=== PATIENT | female | born 1930 | race African-American/Black ===

== ENCOUNTER 2016-08-04 19:37 | Emergency (ER) | payer OTHER ==
[~2016-08-04 19:37] MED LIST: ACET-1311 PO; AMLO2.5T PO; CIPR1TAB11 PO; FURO-85 PO; IMD/2 PO; LINICRE52 TOP; LORA-741 PO; LSN20 PO; NAPR1TAB9 PO; QUET1TAB32 PO; TRAM-10 PO; [UNRECOGNIZED DRUG - CODE] PO
[2016-08-04 19:45] VITALS: O2SAT 95
[2016-08-04 20:31] LABS: BASO % 0.2 %; BASO ABS # 0.01 K/uL (0-0.2); COMPLETE YES; EOS % 4.3 %; HEMATOCRIT 40.4 % (37-47); IG% 0.2 %; LYMPH % 17.9 %; LYMPH ABS # 0.87 K/uL (1.2-3.4); MEAN CELL VOLUME 88.2 fL (80-100); MEAN CORPUSCULAR HEMOGLOBIN 29.9 pg (25-34); MEAN CORPUSCULAR HGB CONC 33.9 g/dl (32-36); MEAN PLATELET VOLUME 11.7 fL (7.4-10.4); MONO % 11.5 %; NEUT % 65.9 %; PLATELET COUNT 196 K/uL (130-400); RED BLOOD COUNT 4.58 M/uL (4.2-5.4); WHITE BLOOD COUNT 4.85 K/uL (4.8-10.8)
--- NOTE | 2016-08-04 20:38 | DIAGNOSTIC IMAGING REPORT ---
CHEST ONE VIEW PORTABLE CLINICAL HISTORY: cough COMPARISON STUDY: March 2011 FINDINGS: The heart is borderline enlarged. There is mild central pulmonary vascular congestion. There are left mid lung zone opacities, likely atelectatic. Right basilar airspace opacities could be atelectatic or inflammatory.. There is minor blunting of the right lateral costophrenic angle. There is no pneumothorax.[ IMPRESSION: 1. Mild central pulmonary vascular congestion 2. Left midlung zone opacities, likely atelectatic. 3. Right basilar airspace opacities, atelectatic versus inflammatory 4. Radiographic follow-up is recommended Electronically signed by: Lior Rivera M.D. 08/04/2016 8:36 PM Dictated Date/Time: 08/04/2016 8:34 PM
[2016-08-04 20:47] LABS: ALT/SGPT 28 U/L (12-78); AST/SGOT 22 U/L (15-37); BLOOD UREA NITROGEN 16 mg/dl (7-18); BUN/CREATININE RATIO 15.6 (10-20); CALCIUM 8.7 mg/dl (8.5-10.1); CARBON DIOXIDE 28 mmol/L (21-32); CHLORIDE 101 mmol/L (98-107); GLUCOSE 92 mg/dl (70-99); POTASSIUM 3.5 mmol/L (3.5-5.1); SODIUM 141 mmol/L (136-145)
[2016-08-04 20:52] LABS: ALKALINE PHOSPHATASE 111 U/L (45-117)
[2016-08-04] MEDS ORDERED: OSELTAMIVIR PHOSPHATE 75 MG CAP PO STA (21:17)
[2016-08-04] MEDS ORDERED: LEVO-366 PO (21:25)
[2016-08-04] MEDS ORDERED: OSEL75CA12 PO (21:25)
[2016-08-04] MEDS ORDERED: LEVOFLOXACIN 250 MG TAB PO ONE (21:30)
[2016-08-04 21:45] VITALS: BP 131/86; PULSE 71; O2SAT 94
--- NOTE | 2016-08-04 23:18 | EMERGENCY ROOM VISIT NOTE ---
History Report prepared by Nuzhatibgayatri: Chintan Odom Under the Supervision of: Dr. Lei Dowd D.O. First contact with patient: 19:59 Chief Complaint: COUGH Stated Complaint: BAD COUGH/ FR [facility] Nursing Triage Summary: Pt presents via ALS litter from [facility] for eval of cough that began yesterday as a dry cough, now a "wet cough" and low grade fever that began today. Pt is a resident at [facility]. Poor historian d/t dementia. Daughters at bedside state pt has increased aggitation at times. History of Present Illness The patient is an 86 year old female who presents to the Emergency Room with complaints of persistent cough that started yesterday. The patient lives at [facility] and they called her daughters earlier today since she developed a cough. The daughters saw that patient 2 days ago and she seemed fine. Per [facility], a dry cough started yesterday and then overnight it became more productive and "croup-like." The patient also developed a fever of 99.8. She was given Tylenol, but by [facility] she had a temperature of 99.5. At [facility], they recommended she present to the ED for further evaluation since they could not get a good listen at her lungs and wanted more tests to be run. She also complained of chest pain at [facility], but then denied it to EMS. The patient's HPI is limited due to dementia. Source of History: patient, family Onset: yesterday Position: other (global) Quality: other ("croup-like") Associated Symptoms: + chest pain, + fevers Review of Systems The patient's ROS is limited due to dementia. Past Medical & Surgical Medical Problems: (1) Arthritis (2) Dementia (3) Hypertension (4) Meningioma (5) Stomach problems Family History Cancer FHx: hypertension Social History Smoking Status: Unknown if Ever Smoked Alcohol Use: occasionally Housing Status: lives alone Occupation Status: unemployed Current/Historical Medications Scheduled Amlodipine (Norvasc), 2.5 MG PO DAILY Furosemide (Lasix), 20 MG PO BID Levofloxacin (Levaquin), 500 MG PO DAILY Lisinopril (Lisinopril), 20 MG PO BID Naproxen (Aleve), 220 MG PO BID Nutritional Supplements (Ensure Nutrition Shake), 1 CAN PO TID Oseltamivir (Tamiflu), 75 MG PO BID Quetiapine Fumarate (Seroquel), 50 MG PO HS Scheduled PRN Acetaminophen (Tylenol), 650 MG PO Q6 PRN for Pain Loperamide Hcl (Imodium), 2 MG PO BID PRN for Diarrhea Tramadol (Ultram), 50 MG PO Q6 PRN for Pain Allergies Coded Allergies: No Known Allergies (Unverified , 08/04/16) Physical Exam Vital Signs Date Time Temp Pulse Resp B/P Pulse Ox O2 Delivery O2 Flow Rate FiO2 08/04/16 21:45 71 131/86 94 Room Air 08/04/16 19:48 76 08/04/16 19:45 98 18 133/91 95 Room Air 08/04/16 19:45 95 Room Air 08/04/16 19:45 95 Room Air Physical Exam GENERAL: sitting up in bed, disheveled, no acute distress, non-toxic EYE EXAM: normal conjunctiva, OROPHARYNX: no exudate, no erythema, lips, buccal mucosa, and tongue normal and mucous membranes are moist NECK: supple, no nuchal rigidity, no adenopathy, non-tender LUNGS: Faint wheeze in left lower lung. Normal chest wall mechanics HEART: no murmurs, S1 normal and S2 normal ABDOMEN: abdomen soft, non-tender, normo-active bowel sounds, no masses, no rebound or guarding. BACK: Back is symmetrical on inspection and there is no deformity, no midline tenderness, no CVA tenderness. SKIN: no rashes and no bruising UPPER EXTREMITIES: upper extremities are grossly normal. LOWER EXTREMITIES: No pitting edema bilaterally. NEURO EXAM: follows commands, not oriented to person, place, or time. Pleasantly demented at baseline per family. Medical Decision & Procedures ER Provider Diagnostic Interpretation: Xray results per the radiologist and my interpretation. CHEST ONE VIEW PORTABLE CLINICAL HISTORY: cough COMPARISON STUDY: March 2011 FINDINGS: The heart is borderline enlarged. There is mild central pulmonary vascular congestion. There are left mid lung zone opacities, likely atelectatic. Right basilar airspace opacities could be atelectatic or inflammatory.. There is minor blunting of the right lateral costophrenic angle. There is no pneumothorax.[ IMPRESSION: 1. Mild central pulmonary vascular congestion 2. Left midlung zone opacities, likely atelectatic. 3. Right basilar airspace opacities, atelectatic versus inflammatory 4. Radiographic follow-up is recommended Electronically signed by: Lior Rivera M.D. 08/04/2016 8:36 PM Dictated Date/Time: 08/04/2016 8:34 PM Laboratory Results 08/04/16 20:20 Red Blood Count 4.58, Mean Corpuscular Volume 88.2, Mean Corpuscular Hemoglobin 29.9, Mean Corpuscular Hemoglobin Concent 33.9, Mean Platelet Volume 11.7, Neutrophils (%) (Auto) 65.9, Lymphocytes (%) (Auto) 17.9, Monocytes (%) (Auto) 11.5, Eosinophils (%) (Auto) 4.3, Basophils (%) (Auto) 0.2, Neutrophils # (Auto ) 3.19, Lymphocytes # (Auto) 0.87, Monocytes # (Auto) 0.56, Eosinophils # (Auto ) 0.21, Basophils # (Auto) 0.01 08/04/16 20:20 Test 08/04/16 20:15 08/04/16 20:20 Influenza Type A Antigen POS for Influ A (NEG) Influenza Type B Antigen Neg for Influ B (NEG) White Blood Count 4.85 K/uL (4.8-10.8) Red Blood Count 4.58 M/uL (4.2-5.4) Hemoglobin 13.7 g/dL (12.0-16.0) Hematocrit 40.4 % (37-47) Mean Corpuscular Volume 88.2 fL (80-100) Mean Corpuscular Hemoglobin 29.9 pg (25-34) Mean Corpuscular Hemoglobin Concent 33.9 g/dl (32-36) Platelet Count 196 K/uL (130-400) Mean Platelet Volume 11.7 fL (7.4-10.4) Neutrophils (%) (Auto) 65.9 % Lymphocytes (%) (Auto) 17.9 % Monocytes (%) (Auto) 11.5 % Eosinophils (%) (Auto) 4.3 % Basophils (%) (Auto) 0.2 % Neutrophils # (Auto) 3.19 K/uL (1.4-6.5) Lymphocytes # (Auto) 0.87 K/uL (1.2-3.4) Monocytes # (Auto) 0.56 K/uL (0.11-0.59) Eosinophils # (Auto) 0.21 K/uL (0-0.5) Basophils # (Auto) 0.01 K/uL (0-0.2) RDW Standard Deviation 48.0 fL (36.4-46.3) RDW Coefficient of Variation 14.9 % (11.5-14.5) Immature Granulocyte % (Auto) 0.2 % Immature Granulocyte # (Auto) 0.01 K/uL (0.00-0.02) Nucleated RBC Absolute Count (auto) 0.04 K/uL (0-0) Nucleated Red Blood Cells % 0.8 % Anion Gap 12.0 mmol/L (3-11) Estimated GFR () 59.1 Estimated GFR (Non- 51.0 BUN/Creatinine Ratio 15.6 (10-20) Calcium Level 8.7 mg/dl (8.5-10.1) Total Bilirubin 0.3 mg/dl (0.2-1) Direct Bilirubin < 0.1 mg/dl (0-0.2) Aspartate Amino Transf (AST/SGOT) 22 U/L (15-37) Alanine Aminotransferase (ALT/SGPT) 28 U/L (12-78) Alkaline Phosphatase 111 U/L (45-117) Troponin I < 0.015 ng/ml (0-0.045) Total Protein 7.5 gm/dl (6.4-8.2) Albumin 3.7 gm/dl (3.4-5.0) Lipase 234 U/L (73-393) Laboratory results per my review. Medications Administered Medications (Trade) Dose Ordered Sig/Luis Miguel Route Start Time Stop Time Status Last Admin Dose Admin Oseltamivir Phosphate (Tamiflu Cap) 75 mg NOW STAT PO 08/04/16 21:17 08/04/16 21:19 DC 08/04/16 21:48 75 MG Levofloxacin (Levaquin Tab) 500 mg NOW ONCE PO 08/04/16 21:30 08/04/16 21:31 DC 08/04/16 21:47 500 MG ECG Indication: other Rate (beats per minute): 76 Rhythm: sinus rhythm Findings: Q waves (Inferior), other (poor baseline in lateral leads) ED Course ED COURSE: Vital signs were reviewed and showed normal The patients medical record was reviewed The above diagnostic studies were performed and reviewed. ED treatments and interventions as stated above. 1999: The patient was evaluated in room C11. A complete history and physical examination was performed. 2116: Ordered Tamiflu Cap 75 mg PO. 2129: Ordered Levofloxacin 500 mg PO. 2216: Upon reevaluation, the patient is resting.I discussed my findings with the patient and her and her family understand and agree with the treatment plan. Based on the patients age, coexisting illnesses, exam and lab findings the decision to treat as an outpatient was made. The patient remained stable while under my care. The patient appeared well at the time of discharge. Medical Decision Differential diagnoses includes but is not limited to pneumonia, bronchitis, COPD/Asthma exacerbation, pneumothorax, pulmonary embolism, congestive heart failure, acute coronary syndrome Patient is an 86-year-old female referred in by [facility]. She lives at the long term and has been having a new cough. She is pleasantly demented and intermittently answers yes and no without any thought. Family notes that she is at her neurologic baseline. She did report to the other doctor at [facility] that she had chest pain. Patient is unable to give a history. Coughing has been present for the past 24 hours. Influenza A is positive. Chest x-ray shows a small focal consolidation in the left lower lobe. Vitals are stable. Remainder labs were unremarkable. EKG and troponin were negative. I notified family that for completeness should be 2 troponins but they do not believe that she was having any chest pain which did not pursue this any further with her dementia. She is given a dose of Tamiflu and Levaquin. The Tamiflu was for influenza A positive and the Levaquin is with consolidation in her chest. She is not hypoxic. She was discharged to home to [facility] to follow-up with PCP within 2 days. Discussed with Pt concerning signs and symptoms to watch out for. Pt was instructed to follow up with their PCP and discussed with the patient their option to return to the ED at anytime for persistent or worsening symptoms. The appropriate anticipatory guidance and out-patient management, including indications for return to the emergency department, were explained at length to the patient and understood. Impression Primary Impression: Influenza Additional Impressions: Pneumonia Cough Scribe Attestation The scribe's documentation has been prepared under my direction and personally reviewed by me in its entirety. I confirm that the note above accurately reflects all work, treatment, procedures, and medical decision making performed by me. Departure Information Dispostion Home / Self-Care Prescriptions Levofloxacin (Levaquin) 500 Mg Tab 500 MG PO DAILY for 9 Days, TAB Prov: Lei Dowd, DO 08/04/16 Oseltamivir (Tamiflu) 75 Mg Cap 75 MG PO BID, #10 CAP Prov: Lei Dowd, DO 08/04/16 Referrals [facility] (PCP) Forms HOME CARE DOCUMENTATION FORM, IMPORTANT VISIT INFORMATION Patient Instructions My [facility] Additional Instructions Please follow up with your primary care doctor with in the next 24 hours. Any worsening of your symptoms, please return to the ED immediately. This includes any fevers greater than 100.4, shortness of breath, chest pain, difficulty breathing, or any other concerning signs or symptoms from your standpoint. You were influenza a positive. This is why your prescribed Tamiflu. On her chest x-ray at that show a right basilar consolidation suggesting more of an infiltrative/pneumonia. This is why your were also prescribed an antibiotic of Levaquin. Problem Qualifiers Additional Impressions: Pneumonia Pneumonia type: due to unspecified organism Laterality: unspecified laterality Lung location: unspecified part of lung Qualified Codes: J18.9 - Pneumonia, unspecified organism
--- NOTE | 2016-08-07 12:50 | Pharmacy Progress Note ---
ED Pharmacist Progress Note Date of Service: Aug 07, 2016. nursing student gave me a copy of Levaquin and Tamiflu Rx's dated 08/04 that were still in the central command office. I contacted [facility] to determine if patient had gotten Rx's for Levofloxacin and Tamiflu on discharge. RN confirmed that both Rx had been obtained through the pharmacy [facility] and the patient is receiving these meds. The copies of both of the Rx's dated 08/04 were destroyed.
== END 2016-08-04 22:07 | disposition home or self-care (01) ==
LOC: EDBD 19:37 → C.EDC 19:40
DX: J11.1 Influenza due to unidentified influenza virus with other respiratory manifestations (principal); J18.9 Pneumonia, unspecified organism; M19.90 Unspecified osteoarthritis, unspecified site; F03.90 Unspecified dementia, unspecified severity, without behavioral disturbance, psychotic disturbance, mood disturbance, and anxiety; I10 Essential (primary) hypertension

== ENCOUNTER → 2016-08-15 | Outpatient (CLI) | payer OTHER ==
[~2016-08-15] MED LIST changes: -CIPR1TAB11 PO; -LINICRE52 TOP; -LORA-741 PO; +OSEL75CA12 PO
[2016-08-15 09:19] LABS: URINE APPEARANCE CLEAR (CLEAR); URINE BILIRUBIN NEG (NEG); URINE COLOR YELLOW; URINE EPITHELIAL CELL AUTO >30 /lpf (0-5); URINE NITRITE NEG (NEG); URINE PH 6.5 (4.5-7.5); UROBILINOGEN NEG (NEG)
[2016-08-15 09:23] LABS: MANUAL MICROSCOPIC REQUIRED? NO; REVIEW REQ? NO
--- NOTE | 2016-08-16 12:34 | CODING QUERY NO DIAGNOSIS ---
TREATMENT RENDERED WITHOUT A DIAGNOSIS Dr. Saavedra, To promote full compliance with coding requirements relating to patient care, physician participation is requested in all cases of senior ux developer uncertainty. Please assist us with providing a diagnosis/symptom for the test(s) below: A diagnosis/symptom was not documented on your Order. A valid diagnosis/symptom is required to bill all insurances. Please remember that we are unable to code a diagnosis of rule out, probable, possible, questionable, or suspected. Tests that require a diagnosis: * URINE CULTURE DIAGNOSIS: * URINALYSIS W/ MICROSCOPY DIAGNOSIS: DATE OF SERVICE: 08/15/16 Provider Signature: Date: Thank you Gregory Rose [facility] Information Management Once completed, please kindly fax back to [phone] For questions please call [phone]
== END | disposition home or self-care (01) ==
LOC: C.LABOUTLO 08:55
PROVIDERS: ATTEND Internal Medicine
DX: R31.9 Hematuria, unspecified (principal); N39.0 Urinary tract infection, site not specified

== ENCOUNTER 2019-11-14 10:25 | Inpatient (IN) ==
--- NOTE | 2019-11-14 10:39 | Emergency Department Note ---
Impression & Plan Cerebrovascular accident, Hypertension, Hypokalemia ED Provider Note NAME: JOSE ALFREDO PENA AGE: 89 SEX: F : 1930 ARRIVES VIA: Ambulance INFORMANT: Patient ED PROVIDER(S): Lei Dowd DO CHIEF COMPLAINT: weakness HPI: Patient is an 89-year-old female who is nonverbal with dementia and verbal take that presents the ER for weakness. She is a resident at [facility]. They note that today she has had a lazy eye on the left side and a question if she has been favoring her left side. They do note that she has been able to walk. History is limited as patient has no complaints as she is nonverbal. ROS: History is limited as patient is nonverbal. PAST MEDICAL HISTORY:See Below PAST SURGICAL HISTORY:See Below FAMILY HISTORY:See Below SOCIAL HISTORY:See Below HOME MEDICATIONS:See Below ALLERGIES:See Below VITALS:See Below PHYSICAL EXAMINATION: GENERAL: Sitting up in bed, alert, well appearing, well nourished, no distress, non-toxic EYE EXAM: normal conjunctiva. PERRL and EOM's grossly intact. OROPHARYNX: no exudate, no erythema, lips, buccal mucosa, and tongue normal and mucous membranes are moist NECK: supple, no nuchal rigidity, no adenopathy, non-tender LUNGS: Clear to auscultation. Normal chest wall mechanics HEART: no murmurs, S1 normal and S2 normal ABDOMEN: abdomen soft, non-tender, normo-active bowel sounds, no masses, no rebound or guarding. BACK: Back is symmetrical on inspection and there is no deformity, no midline tenderness, no CVA tenderness. SKIN: no rashes and no bruising UPPER EXTREMITIES: upper extremities are grossly normal. LOWER EXTREMITIES: No pitting edema. NEURO EXAM: Nonverbal with a intermittent home, cranial nerves II-XII intact, no weakness of arms, no weakness of legs. Unable to perform drift, [id number] and gross sensation MEDICAL DECISION MAKING: Patient is an 89-year-old female who presents to the ER for disconjugate gaze and weakness which started yesterday morning. She is nonverbal with dementia which presented extremely difficult neurologic exam. She was brought in by EMS. There is no obvious focal deficit with exception of her slightly abnormal gaze which is even difficult to interpret. IV was established blood work was obtained showed no significant leukocytosis or anemia. INR unremarkable. BMP with mild hypokalemia. LFTs bilirubin and troponin was negative. UA was negative. CT of the head as well as CT angios of the head and neck show right DUPLICATION SPECIALIST occlusion. Discussed with tele-stroke neurologist and symptoms started yesterday in the morning Dr. Moran notes that this patient is not a candidate for any current intervention. Recommended an aspirin and admission. Discussed with halfway nurse who notes that the patient is a full code. Discussed with her hospitalist team for admission. Discussed with the patient's daughter who notes that the patient is a DNR/DNI. She is in agreement with the admission and complete work-up. Triage Nursing notes reviewed. Prior medical records reviewed Vital Signs: reviewed and remarkable for no significant abnormalities Differential diagnosis: Differential Diagnosis includes but is not limited to ischemic Stroke, hemorrhagic stroke, bells palsy, mass, neoplasm, migraine headache, seizure, subarachnoid hemorrhage, TIA, and transient global amnesia. ER treatment provided: See below Diagnostics interpreted by me: ECG: Sinus rhythm rate of 65 Inferior Q waves Normal axis QTC of 428 No PVCs Unchanged from previous EKG. Cardiac Monitoring: An order was placed for continuous cardiac monitoring. The monitor shows a rate of 63 with sinus rhythm. Laboratory studies: As stated above and show below. Imaging studies: CT of the head shows no acute bleeds or masses. 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 Consultation(s): Discussed with halfway in regards to symptom onset. Discussed with daughter who notes she is a DNR/DNI. Discussed with Dr. Moran from [place] [facility]stroke [facility] who recommends aspirin and admission. [facility] COURSE: Procedures: none Critical Care: None Past Med/Surg History Social History Preferred Language: Armenian Communication Ability: Unable Beliefs That Will Affect Care: None Current Living Situation: [facility] Feels Safe at Home: Yes Smoking Status: Unknown if ever smoked Hx Alcohol Use: No Hx Substance Use: No Allergies Allergies Allergy/AdvReac Type Severity Reaction Status Date / Time No Known Allergies Allergy Unverified 11/14/19 11:36 Home Meds Home Medications Medication Instructions Recorded Confirmed Ensure 1 ea PO TID PRN 08/19/19 11/14/19 acetaminophen 650 mg PO Q6H PRN 08/19/19 11/14/19 quetiapine 50 mg PO HS 08/19/19 11/14/19 tramadol 50 mg PO Q6H PRN 08/19/19 11/14/19 insulin glargine [Lantus Solostar 7 units SQ BID 11/14/19 11/14/19 U-100 Insulin] Previous Rx's Medication Instructions Recorded amlodipine 5 mg PO QAM #0 tab 08/22/19 furosemide [Lasix] 20 mg PO DAILY #0 tab 08/22/19 lisinopril 20 mg PO DAILY #0 tab 08/22/19 Results & Data (ED) Vital Signs Vital Signs - 24 hr 11/14/19 10:34 11/14/19 10:52 Temperature 36.5 C Temperature Source Oral Pulse Rate 65 67 Respiratory Rate 24 22 Respiratory Effort / Characteristics Spontaneous Blood Pressure 158/59 H Blood Pressure Mean 92 Blood Pressure Position Lying Pulse Oximetry 98 98 Oxygen Delivery Method Room Air Room Air Sepsis Recent Fever Within 48 Hours No Sepsis New/Unexplained Change in Mental Status No Sepsis Action Taken by Nursing No Action Required Laboratory Data Result diagrams: 11/14/19 11:10 11/14/19 11:10 Lab Results 11/14/19 11/14/19 11/14/19 Range/Units 11:10 11:10 11:10 WBC 6.40 (4.8-10.8) K/uL RBC 4.56 (4.2-5.4) M/uL Hgb 13.0 (12.0-16.0) g/dL Hct 40.3 (37-47) % MCV 88.4 (80-100) fL MCH 28.5 (25-34) pg MCHC 32.3 (32-36) g/dL RDW Std Deviation 48.0 H (36.4-46.3) fL RDW Coeff of Saira 15.1 H (11.5-14.5) % Plt Count 250 (130-400) K/uL MPV 11.5 H (7.4-10.4) fL Immature Gran % (Auto) 0.2 % Neut % (Auto) 54.9 % Lymph % (Auto) 31.4 % Slope % (Auto) 9.2 % Eos % (Auto) 4.1 % Baso % (Auto) 0.2 % Immature Gran # (Auto) 0.01 (0.00-0.02) K/uL Neut # (Auto) 3.52 (1.4-6.5) K/uL Lymph # (Auto) 2.01 (1.2-3.4) K/uL Slope # (Auto) 0.59 (0.11-0.59) K/uL Eos # (Auto) 0.26 (0-0.5) K/uL Baso # (Auto) 0.01 (0-0.2) K/uL PT 10.9 (9.0-12.0) Seconds INR 1.0 (0.9-1.1) APTT 26.9 (21.0-31.0) Seconds PTT Ratio 1.0 Sodium 142 (136-145) mmol/L Potassium 3.3 L (3.5-5.1) mmol/L Chloride 108 H (98-107) mmol/L Carbon Dioxide 29 (21-32) mmol/L Anion Gap 5.0 (3-11) BUN 12 (7-18) mg/dl Creatinine 0.97 (0.6-1.2) mg/dl Est Cr Clr Drug Dosing 38.6 ml/min Est GFR ( Amer) 60.0 Est GFR (Non-Af Amer) 51.8 BUN/Creatinine Ratio 12.0 (10-20) Glucose 95 (70-99) mg/dl POC Glucose (70-99) mg/dl Calcium 8.6 (8.5-10.1) mg/dl Magnesium 2.2 (1.8-2.4) mg/dl Total Bilirubin 0.4 (0.2-1) mg/dl AST 15 (15-37) U/L ALT 20 (12-78) U/L Alkaline Phosphatase 75 (45-117) U/L Troponin I < 0.015 (0-0.045) ng/ml Total Protein 7.8 (6.4-8.2) gm/dl Albumin 3.2 L (3.4-5.0) gm/dl Globulin 4.6 H (2.5-4.0) gm/dl Albumin/Globulin Ratio 0.7 L (0.9-2) Urine Color Urine Appearance (Clear) Urine pH (4.5-7.5) Ur Specific Alpha (1.000-1.030) Urine Protein (Negative) Urine Glucose (UA) (Negative) Urine Ketones (Negative) Urine Blood (Negative) Urine Nitrite (Negative) Urine Bilirubin (Negative) Urine Urobilinogen (Negative) Ur Leukocyte Esterase (Negative) 11/14/19 11/14/19 Range/Units 11:10 11:16 WBC (4.8-10.8) K/uL RBC (4.2-5.4) M/uL Hgb (12.0-16.0) g/dL Hct (37-47) % MCV (80-100) fL MCH (25-34) pg MCHC (32-36) g/dL RDW Std Deviation (36.4-46.3) fL RDW Coeff of Saira (11.5-14.5) % Plt Count (130-400) K/uL MPV (7.4-10.4) fL Immature Gran % (Auto) % Neut % (Auto) % Lymph % (Auto) % Slope % (Auto) % Eos % (Auto) % Baso % (Auto) % Immature Gran # (Auto) (0.00-0.02) K/uL Neut # (Auto) (1.4-6.5) K/uL Lymph # (Auto) (1.2-3.4) K/uL Slope # (Auto) (0.11-0.59) K/uL Eos # (Auto) (0-0.5) K/uL Baso # (Auto) (0-0.2) K/uL PT (9.0-12.0) Seconds INR (0.9-1.1) APTT (21.0-31.0) Seconds PTT Ratio Sodium (136-145) mmol/L Potassium (3.5-5.1) mmol/L Chloride (98-107) mmol/L Carbon Dioxide (21-32) mmol/L Anion Gap (3-11) BUN (7-18) mg/dl Creatinine (0.6-1.2) mg/dl Est Cr Clr Drug Dosing ml/min Est GFR ( Amer) Est GFR (Non-Af Amer) BUN/Creatinine Ratio (10-20) Glucose (70-99) mg/dl POC Glucose 103 H (70-99) mg/dl Calcium (8.5-10.1) mg/dl Magnesium (1.8-2.4) mg/dl Total Bilirubin (0.2-1) mg/dl AST (15-37) U/L ALT (12-78) U/L Alkaline Phosphatase (45-117) U/L Troponin I (0-0.045) ng/ml Total Protein (6.4-8.2) gm/dl Albumin (3.4-5.0) gm/dl Globulin (2.5-4.0) gm/dl Albumin/Globulin Ratio (0.9-2) Urine Color Yellow Urine Appearance Clear (Clear) Urine pH 5.5 (4.5-7.5) Ur Specific Alpha 1.016 (1.000-1.030) Urine Protein Negative (Negative) Urine Glucose (UA) Negative (Negative) Urine Ketones Negative (Negative) Urine Blood Negative (Negative) Urine Nitrite Negative (Negative) Urine Bilirubin Negative (Negative) Urine Urobilinogen Negative (Negative) Ur Leukocyte Esterase Negative (Negative) Administered Medications Ioversol (Optiray 320 125ml) 120 ml IV ONCE PRN PRN Reason: Interaction Checking Stop: 11/18/19 11:49 Last Admin: 11/14/19 11:50 Dose: 120 ml Documented by: [id number] Discontinued Medications Aspirin (Aspirin) 81 mg PO NOW STA Stop: 11/14/19 13:03 Last Admin: 11/14/19 13:14 Dose: 81 mg Documented by: [id number] Discharge Plan Visit Data Chief Complaint: Neuro Symptoms/Deficit Stated Complaint: Neuro Symptoms ED Provider: Lei Dowd Discharge Problem: Cerebrovascular accident, Hypertension, Hypokalemia Forms Stand Alone Forms: My [facility] [employer] Prescriptions Prescriptions: No Action Lantus Solostar U-100 Insulin 100 unit/mL (3 mL) insulin pen 7 units SQ BID RF: 0 quetiapine 50 mg Tablet 50 mg PO HS RF: 0 acetaminophen 325 mg Tablet 650 mg PO Q6H PRN (Reason: Pain) RF: 0 tramadol 50 mg Tablet 50 mg PO Q6H PRN (Reason: Pain) RF: 0 Ensure Liquid 1 ea PO TID PRN (Reason: Other) RF: 0 lisinopril 20 mg Tablet 20 mg PO DAILY Qty: 0 RF: 0 amlodipine 2.5 mg Tablet 5 mg PO QAM Qty: 0 RF: 0 furosemide [Lasix] 20 mg Tablet 20 mg PO DAILY Qty: 0 RF: 0 Discharge Problem: Cerebrovascular accident Qualifiers: CVA mechanism: unspecified Qualified Code(s): I63.9 - Cerebral infarction, unspecified Hypertension Qualifiers: Hypertension type: unspecified Qualified Code(s): I10 - Essential (primary) hypertension
[2019-11-14 11:19] LABS: Appearance Urine Clear (Clear); Bilirubin Urine Negative (Negative); Blood Urine Negative (Negative); Color Urine Yellow; Glucose Urine UA Negative (Negative); Ketones Urine Negative (Negative); Leukocyte Esterase Urine Negative (Negative); Nitrite Urine Negative (Negative); Protein Urine Negative (Negative); Specific Gravity Urine 1.016 (1.000-1.030); Urobilinogen Urine Negative (Negative); pH Urine 5.5 (4.5-7.5)
[2019-11-14 11:20] LABS: Basophils # (auto) 0.01 K/uL (0-0.2); Basophils % (auto) 0.2 %; Eosinophils # (auto) 0.26 K/uL (0-0.5); Eosinophils % (auto) 4.1 %; Hematocrit (blood only) 40.3 % (37-47); Immature Granulocytes # (auto) 0.01 K/uL (0.00-0.02); Immature Granulocytes % (auto) 0.2 %; Lymphocytes # (auto) 2.01 K/uL (1.2-3.4); Lymphocytes % (auto) 31.4 %; Mean Corpuscular Hemoglobin 28.5 pg (25-34); Mean Corpuscular Hgb Conc 32.3 g/dL (32-36); Mean Corpuscular Volume 88.4 fL (80-100); Mean Platelet Volume 11.5 fL (7.4-10.4); Monocytes # (auto) 0.59 K/uL (0.11-0.59); Monocytes % (auto) 9.2 %; Neutrophils # (auto) 3.52 K/uL (1.4-6.5); Neutrophils % (auto) 54.9 %; Platelet Count 250 K/uL (130-400); RDW Coefficient of Variation 15.1 % (11.5-14.5); Red Blood Count 4.56 M/uL (4.2-5.4)
[2019-11-14 11:32] LABS: Partial Thromboplastin Time 26.9 Seconds (21.0-31.0); Prothrombin Time 10.9 Seconds (9.0-12.0)
[2019-11-14 11:37] LABS: Alanine Aminotransferase 20 U/L (12-78); Albumin Level 3.2 gm/dl (3.4-5.0); Aspartate Aminotransferase 15 U/L (15-37); Blood Urea Nitrogen 12 mg/dl (7-18); Calcium 8.6 mg/dl (8.5-10.1); Carbon Dioxide 29 mmol/L (21-32); Chloride 108 mmol/L (98-107); Creatinine Clr Calc Pharmacy 38.6 ml/min; Est GFR (Non-African American) 51.8; Glucose 95 mg/dl (70-99); Magnesium 2.2 mg/dl (1.8-2.4); Potassium 3.3 mmol/L (3.5-5.1); Sodium 142 mmol/L (136-145)
[2019-11-14 11:42] LABS: Albumin Globulin Ratio 0.7 (0.9-2); Alkaline Phosphatase 75 U/L (45-117); Bilirubin,Total 0.4 mg/dl (0.2-1); Globulin 4.6 gm/dl (2.5-4.0); Total Protein 7.8 gm/dl (6.4-8.2); Troponin I < 0.015 ng/ml (0-0.045)
--- NOTE | 2019-11-14 11:48 | XRay Report ---
XR chest 1V portable HISTORY: weakness COMPARISON: Chest 08/19/2019. FINDINGS: The heart remains mildly enlarged. No evidence for pulmonary edema. No pleural effusions. N o pneumothorax. No new focal lung consolidations to suggest pneumonia. A few bibasilar linear densiti es favor subsegmental atelectasis or scarring. IMPRESSION: Stable cardiomegaly. ACT 112: Negative or not required by law. Electronically signed by: Daryn Kurtz M.D. 11/14/2019 11:47 AM
[2019-11-14] MEDS ORDERED: OPTIRAY 320 125ml IV PRN (11:50)
--- NOTE | 2019-11-14 12:40 | CT Scan Report ---
HEAD CT NONCONTRAST CT DOSE: HISTORY: Stroke symptoms. TECHNIQUE: Multiaxial CT images of the head were performed without the use of intravenous contrast. A utomated exposure control was utilized for this study. A dose lowering technique was utilized adheri ng to the principles of ALARA. Comparison: Head CT 08/19/2019. Findings: The paranasal sinuses and mastoid air cells are clear. The calvarium and skull base are int act. No change in the 1.7 cm calcified extra-axial lesion within the left frontal lobe. This favors a meningioma. No hematoma, midline shift, or acute infarct. Progressive moderate ventriculomegaly. Mil d microvascular ischemic changes are again noted. Impression: 1. No acute infarct. 2. Stable 17 mm left frontal lobe meningioma. 3. Progressive moderate ventriculomegaly. This could be due to atrophic changes given the patient's a ge. A normal pressure hydrocephalus could also have a similar appearance in the appropriate clinical setting. ACT 112: Negative or not required by law. Electronically signed by: Daryn Kurtz M.D. 11/14/2019 12:38 PM
--- NOTE | 2019-11-14 12:48 | CT Scan Report ---
HEAD & NECK CTA HISTORY: Stroke symptoms. TECHNIQUE: Multiaxial CT images of the head were performed following the intravenous administration o f contrast to evaluate the major cerebral vessels. Multiaxial CT images of the neck were also perform ed following the intravenous administration of contrast to evaluate the major cervical vessels. Maxim um intensity projection images were also obtained. A dose lowering technique was utilized adhering to the principles of ALARA. COMPARISON: Head CT 08/19/2019. FINDINGS: Moderate ventriculomegaly is again noted as seen on the same day head CT. Mild focal narrowing within the mid basilar artery. There is abrupt cut off within the proximal right TIER IN. Multifocal high-grade stenosis within the left TIER IN. Moderate narrowing within the supraclinoid portion of the right ICA. T he left intracranial ICA appears patent. Moderate multifocal narrowing within the right OBI. The left OBI appears patent. Mild focal narrowing within the proximal left MCA. The right MCA is patent. Hypo plastic left vertebral artery comparison to the right. The aortic arch and proximal great vessels are widely patent. Mild focal stenosis at the origin of the right ICA of approximately 30% due to the atherosclerotic plaque. The bilateral common carotid, l eft internal carotid, vertebral arteries appear patent. IMPRESSION: 1. Focal abrupt cut off within the proximal right TIER IN. This is age indeterminate but concerning for a n acute right TIER IN territory infarct. 2. Additional multifocal areas of stenosis within the [place] as described above. 3. Mild stenosis at the origin of the right internal carotid artery. The left internal carotid artery and common carotid arteries are patent. ACT 112: Negative or not required by law. Electronically signed by: Daryn Kurtz M.D. 11/14/2019 12:47 PM
--- NOTE | 2019-11-14 12:48 | CT Scan Report ---
HEAD & NECK CTA HISTORY: Stroke symptoms. TECHNIQUE: Multiaxial CT images of the head were performed following the intravenous administration o f contrast to evaluate the major cerebral vessels. Multiaxial CT images of the neck were also perform ed following the intravenous administration of contrast to evaluate the major cervical vessels. Maxim um intensity projection images were also obtained. A dose lowering technique was utilized adhering to the principles of ALARA. COMPARISON: Head CT 08/19/2019. FINDINGS: Moderate ventriculomegaly is again noted as seen on the same day head CT. Mild focal narrowing within the mid basilar artery. There is abrupt cut off within the proximal right INFORMATION SECURITY MANAGER. Multifocal high-grade stenosis within the left INFORMATION SECURITY MANAGER. Moderate narrowing within the supraclinoid portion of the right ICA. T he left intracranial ICA appears patent. Moderate multifocal narrowing within the right OBI. The left OBI appears patent. Mild focal narrowing within the proximal left MCA. The right MCA is patent. Hypo plastic left vertebral artery comparison to the right. The aortic arch and proximal great vessels are widely patent. Mild focal stenosis at the origin of the right ICA of approximately 30% due to the atherosclerotic plaque. The bilateral common carotid, l eft internal carotid, vertebral arteries appear patent. IMPRESSION: 1. Focal abrupt cut off within the proximal right INFORMATION SECURITY MANAGER. This is age indeterminate but concerning for a n acute right INFORMATION SECURITY MANAGER territory infarct. 2. Additional multifocal areas of stenosis within the [place] as described above. 3. Mild stenosis at the origin of the right internal carotid artery. The left internal carotid artery and common carotid arteries are patent. ACT 112: Negative or not required by law. Electronically signed by: Daryn Kurtz M.D. 11/14/2019 12:47 PM
[2019-11-14] MEDS ORDERED: ASPIRIN CHEW 324 MG PO STA (13:02)
[2019-11-14] MEDS ORDERED: ACETAMINOPHEN 325 MG TAB PO PRN (14:30)
--- NOTE | 2019-11-14 14:59 | History & Physical Report ---
Date of Service November 14, 2019 Assessment & Plan (1) Cerebrovascular accident: CTA of head/neck concerning for acute right DENTAL HYGIENE ADMINISTRATIVE ASSISTANT territory infarct. Discussed with pt's daughter who agrees with admission for additional monitoring and evaluation but overall does not want aggressive measures. - Neuro checks - Start aspirin 81 mg daily - Consult neuro for additional recommendations - Consult PT/OT/Speech therapy - Pt seemed to do better with applesauce than water so will keep NPO except pills with applesauce until seen by speech therapy - Monitor on telemetry (2) Hypokalemia: - Start maintenance IVF - will replete potassium with IVF and recheck in AM - Check mag level (3) Type 2 diabetes mellitus: - Hold baseline Lantus while NPO - Insulin sliding scale for now - Accuchecks Q6 hrs (4) Dementia: Per daughter, pt appears to be at baseline mental status - Continue Seroquel (5) Hypertension: - Continue outpatient amlopdine and lisinopril with holds Extensive conversation with pt's daughter, Rosalba. She requests to be updated with any changes. Her cell # is [phone] and home # is [phone]. All of her questions were answered. She is in agreement with plan of care. She does state that the family is in agreement that pt is DNR/DNI. Pt review with attending physician, Dr. Vazquez. Plan of care discussed and as outlined above. Josiah Kay PA-C History of Present Illness Chief Complaint: Change in gait - concern for CVA Primary Care Provider: [facility] This is an 89 y/o female who is non-verbal and has a history of dementia, meningioma, insulin-requiring diabetes, and hypertension who presents from [facility] with neurologic changes if an unclear duration but potentially since yesterday. Pt unable to provide any history so history gathered from daughter and ED physician. At some point yesterday, staff at [facility] noticed pt favoring her left side and an abnormal gaze. This morning they noticed pt having increased difficulty with ambulation and a change in her gait so sent to ED for further work-up. Per daughter, pt had done well with PT/OT/speech therapy since she was last admitted her in August. Was able to walk with one person assist (struggles with using a walker) and had started feeding herself finger foods. Pt has been non-verbal for past two years but does groan or hum frequently. Seems to recognize family but does not maintain eye contact at baseline. Allergies Allergy/AdvReac Type Severity Reaction Status Date / Time No Known Allergies Allergy Unverified 11/14/19 11:36 Home Medications Home Medications Medication Instructions Recorded Confirmed Type Ensure 1 ea PO TID PRN 08/19/19 11/14/19 History acetaminophen 650 mg PO Q6H PRN 08/19/19 11/14/19 History quetiapine 50 mg PO HS 08/19/19 11/14/19 History tramadol 50 mg PO Q6H PRN 08/19/19 11/14/19 History amlodipine 5 mg PO QAM #0 tab 08/22/19 11/14/19 Rx furosemide 20 mg PO BID 11/14/19 11/14/19 History insulin glargine [Lantus Solostar 7 units SQ BID 11/14/19 11/14/19 History U-100 Insulin] lisinopril 20 mg PO BID 11/14/19 11/14/19 History Past Med/Surg History Medical History (Updated 11/14/19 @ 15:15 by Dawn Kay PA-C) Arthritis (Chronic) Dementia (Chronic) Hypertension (Chronic) Meningioma (Resolved) Type 2 diabetes mellitus Surgical History History of thyroid surgery Social History Preferred Language: Khmer Communication Ability: Impaired 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 Hand Required: No Beliefs That Will Affect Care: None Current Living Situation: Retirement Other Information That Helps Us Care for You: No Feels Safe at Home: Yes Smoking Status: Unknown if ever smoked Hx Alcohol Use: No Hx Substance Use: No Review of Systems Review of Systems: Unobtainable due to cognitive status Physical Exam Constitutional: WD/WN, vitals as above no acute distress Eyes: + anicteric sclerae and PERRL; no conjunctival abnormality Unable to cooperate with EOMs - did intermittently track my movement around the room ENMT: Moist mucus membranes Neck: normal visual inspection and trachea midline Respiratory: no respiratory distress, no retractions and does not use accessory muscles Auscultation: lungs clear to auscultation bilaterally (but limited inspiratory effort) Cardiovascular: Rate/Rhythm: regular rate and regular rhythm Vessels: dorsalis pedis pulses present Extremities: + edema (1+ bilateral LE edema) Gastrointestinal (Abdomen): Inspection/Auscultation: normal bowel sounds; abdomen not distended Percussion/Palpation: abdomen soft; abdomen nontender Musculoskeletal: Head/Neck/Chest: normocephalic, head atraumatic and neck supple Extremities: no cyanosis and no clubbing Skin: no rashes, warm and dry no jaundice Neurologic: moves all extremities (but limited ability to cooperate with full exam) Speech / Cognition: + abnormal speech (non-verbal - groaning during exam) No facial droop noted Results & Data Results & Data ([facility]) Vital Signs (Past 12 Hours) Vital Signs Temp Pulse Resp BP Pulse Ox 11/14/19 14:31 60 12 95 11/14/19 14:30 61 13 127/76 96 11/14/19 14:01 65 12 149/98 H 97 11/14/19 14:00 61 13 11/14/19 13:31 64 13 97 11/14/19 13:30 67 15 152/134 H 11/14/19 13:01 66 12 93 11/14/19 13:00 65 12 142/79 H 95 11/14/19 12:31 69 14 92 11/14/19 12:30 70 14 130/74 11/14/19 12:02 79 37 H 11/14/19 11:31 66 16 96 11/14/19 11:30 66 13 146/81 H 97 11/14/19 11:01 63 13 98 11/14/19 11:00 70 20 142/95 H 11/14/19 10:52 67 22 98 11/14/19 10:43 65 14 158/59 H 100 11/14/19 10:34 36.5 C 65 24 158/59 H 98 11/14/19 10:32 90 32 H Laboratory Results Laboratory Results - last 24 hr 11/14/19 11/14/19 11/14/19 11:10 11:10 11:10 WBC 6.40 RBC 4.56 Hgb 13.0 Hct 40.3 MCV 88.4 MCH 28.5 MCHC 32.3 RDW Std Deviation 48.0 H RDW Coeff of Saira 15.1 H Plt Count 250 MPV 11.5 H Immature Gran % (Auto) 0.2 Neut % (Auto) 54.9 Lymph % (Auto) 31.4 [place] % (Auto) 9.2 Eos % (Auto) 4.1 Baso % (Auto) 0.2 Immature Gran # (Auto) 0.01 Neut # (Auto) 3.52 Lymph # (Auto) 2.01 [place] # (Auto) 0.59 Eos # (Auto) 0.26 Baso # (Auto) 0.01 PT 10.9 INR 1.0 APTT 26.9 PTT Ratio 1.0 Sodium 142 Potassium 3.3 L Chloride 108 H Carbon Dioxide 29 Anion Gap 5.0 BUN 12 Creatinine 0.97 Est Cr Clr Drug Dosing 38.6 Est GFR ( Amer) 60.0 Est GFR (Non-Af Amer) 51.8 BUN/Creatinine Ratio 12.0 Glucose 95 POC Glucose Calcium 8.6 Magnesium 2.2 Total Bilirubin 0.4 AST 15 ALT 20 Alkaline Phosphatase 75 Troponin I < 0.015 Total Protein 7.8 Albumin 3.2 L Globulin 4.6 H Albumin/Globulin Ratio 0.7 L Urine Color Urine Appearance Urine pH Ur Specific [place] Urine Protein Urine Glucose (UA) Urine Ketones Urine Blood Urine Nitrite Urine Bilirubin Urine Urobilinogen Ur Leukocyte Esterase 11/14/19 11/14/19 11:10 11:16 WBC RBC Hgb Hct MCV MCH MCHC RDW Std Deviation RDW Coeff of [place] Plt Count MPV Immature Gran % (Auto) Neut % (Auto) Lymph % (Auto) [place] % (Auto) Eos % (Auto) Baso % (Auto) Immature Gran # (Auto) Neut # (Auto) Lymph # (Auto) [place] # (Auto) Eos # (Auto) Baso # (Auto) PT INR APTT PTT Ratio Sodium Potassium Chloride Carbon Dioxide Anion Gap BUN Creatinine Est Cr Clr Drug Dosing Est GFR ( Amer) Est GFR (Non-Af Amer) BUN/Creatinine Ratio Glucose POC Glucose 103 H Calcium Magnesium Total Bilirubin AST ALT Alkaline Phosphatase Troponin I Total Protein Albumin Globulin Albumin/Globulin Ratio Urine Color Yellow Urine Appearance Clear Urine pH 5.5 Ur Specific [place] 1.016 Urine Protein Negative Urine Glucose (UA) Negative Urine Ketones Negative Urine Blood Negative Urine Nitrite Negative Urine Bilirubin Negative Urine Urobilinogen Negative Ur Leukocyte Esterase Negative Diagnostic Findings CT Head 11/14/19 - Impression: 1. No acute infarct. 2. Stable 17 mm left frontal lobe meningioma. 3. Progressive moderate ventriculomegaly. This could be due to atrophic changes given the patient's age. A normal pressure hydrocephalus could also have a similar appearance in the appropriate clinical setting. CTA Head and Neck 11/14/19 - IMPRESSION: 1. Focal abrupt cut off within the proximal right DENTAL HYGIENE ADMINISTRATIVE ASSISTANT. This is age indeterminate but concerning for an acute right DENTAL HYGIENE ADMINISTRATIVE ASSISTANT territory infarct. 2. Additional multifocal areas of stenosis within the [place] as described above. 3. Mild stenosis at the origin of the right internal carotid artery. The left internal carotid artery and common carotid arteries are patent. Chest X-ray 11/14/19 - IMPRESSION: Stable cardiomegaly. Medications Administered Ioversol (Optiray 320 125ml) 120 ml IV ONCE PRN PRN Reason: Interaction Checking Stop: 11/18/19 11:49 Last Admin: 11/14/19 11:50 Dose: 120 ml Documented by: [id number] Discontinued Medications Aspirin (Aspirin) 81 mg PO NOW STA Stop: 11/14/19 13:03 Last Admin: 11/14/19 13:14 Dose: 81 mg Documented by: [id number] Code Status & VTE Plan VTE Prophylaxis Plan VTE Prophylaxis will be ordered: Yes Supervising Physician Co-Signing Physician Notes Attending addendum: The patient was seen and examined in medical telemetry unit She has dementia with history of diabetes type 2 on insulin, meningioma, hypertension and has been almost bedbound. She was brought in possible strokelike symptoms She has been nonverbal and moans all the time without any acute distress On examination Lying in bed without any facial asymmetry or any acute distress Hemodynamically stable Chest-decreased breath sounds both sides without any crackles Heart-S1-S2, regular Abdomen-soft, bowel sounds present Extremities-has 1-2+ bilateral edema PRODUCT LINE MANAGER-alert and awake. Nonverbal. Not following commands. 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
[2019-11-14] MEDS ORDERED: DEXTROSE 50% 50 ML SYRINGE IV PRN (15:32)
[2019-11-14] MEDS ORDERED: CARBOHYDRATES FOR HYPOGLYCEMIA PO PRN (15:32)
[2019-11-14] MEDS ORDERED: GLUCAGON FOR INJ 1 MG VIAL SQ PRN (15:32)
[2019-11-14] MEDS ORDERED: GLUCOSE 40% GEL 15 GM TUBE PO PRN (15:32)
[2019-11-14] MEDS ORDERED: POTASSIUM CHLORIDE 40 MEQ in SODIUM CHLORIDE 0.9% 1000ML 1,000 ML IV SCH (15:32)
[2019-11-14] MEDS ORDERED: GLUCOSE 10 TABS/TUBE PO PRN (15:32)
[2019-11-14] MEDS ORDERED: Nursing to Pharmacy Communication ONE (16:11)
[2019-11-14] MEDS ORDERED: INSULIN ASPART 100 UNITS/ML 3 ML PEN SC SCH (16:30)
[2019-11-14] MEDS: INSULIN ASPART 100 UNITS/ML 3 ML PEN SC SCH (18:32)
--- NOTE | 2019-11-14 19:20 | Communication Note ---
Date of Service: November 14, 2019 CHIEF COMPLAINT: Testicular pain HISTORY OF PRESENT ILLNESS: This man has had pain in the testicle for XXXXX. He denies any injury or unusual lifting or straining. There has been no dysuria or increased urinary frequency. No blood in the urine and no difficulty initiating urination. He denies abdominal pain. The pain is steady and severe. REVIEW OF SYSTEMS: GASTROINTESTINAL: No abdominal pain, vomiting, loss of appetite, or diarrhea. MUSCULOSKELETAL: No joint pain or swelling, no limitation of motion, no skeletal injuries. PMH: The patient is healthy; there is no significant medical or surgical history. SOCIAL HISTORY: Patient living at home. PHYSICAL EXAM: Vital Signs: Reviewed Nurse's notes. ABDOMEN: Soft, nontender, no hepatosplenomegaly, or masses. SKIN: Normal. The testicle is enlarged as large as the normal testicle. It is very tender to palpation. There is no inguinal lymphadenopathy. EMERGENCY DEPARTMENT COURSE: Urinalysis shows XXXXX. DIAGNOSIS: Epididymitis I just received notification of this consultation on an 89-year-old patient who is a resident of [facility] has been nonverbal for 2 years, has difficulties with ambulation and quite a number of vascular risk factors who had a change in mental status perhaps a visual field cut and apparently some difficulty moving her left arm and leg according to the notes I have reviewed from emergency room and from the admitting service. While no CT evidence for acute infarction is seen there is clearly evidence on CT angiography of multifocal areas of stenoses in the basilar artery and the left posterior cerebral an abrupt cutoff of the right posterior cerebral artery which certainly would be a lesion capable of producing increased confusion and a left visual field cut. The patient apparently was not on aspirin when this is been started. The family apparently does not wish to have a lot of aggressive treatment and she is a DO NOT RESUSCITATE DO NOT INTUBATE I will come in to briefly assess her tomorrow but at this point I do not feel neurology has a lot to offer other than the aspirin which she apparently was not taking until the present time We might wish to repeat a CAT scan tomorrow just to be sure that there is no hemorrhagic transformation of what I assume is what appears to be a right occipital infarction as this distribution of stroke has been higher predilection for this type of hemorrhagic change Since she is a resident of [facility] and has presented with acute stroke we might want to think about doing COVID-19 as asymptomatic patients have a youthful age can present with a CVA is the only manifestation of a COVID-19 infection. This of course would be a decision that needs to be made by the admitting team Bladimir Higgins MD
[2019-11-14] MEDS ORDERED: HydrALAZINE HCL 20 MG/ML VIAL IV PRN (20:03)
--- NOTE | 2019-11-14 20:13 | Communication Note ---
Date of Service: November 14, 2019 My prior note somehow became attached to a urology consultation done I believe on a completely different patient and I could not do anything to change this. I refer the reader to be the second half of the note which outlines my opinion and recommendations at this time. Tomorrow when I do not make a brief visit to the bedside and review more of the studies a final note and recommendations will be made Bladimir Higgins MD
[2019-11-14] MEDS: HEPARIN SOD 5,000 UNIT/0.5 ML VIAL SQ SCH (20:48)
[2019-11-14] MEDS: lisinopriL 20 MG TAB PO SCH (20:50)
[2019-11-14] MEDS: QUETIAPINE FUMARATE 25 MG TABLET PO SCH (20:50)
[2019-11-14] MEDS ORDERED: INSULIN GLARGINE SOLOSTAR 100 UNITS/ML 3 ML PEN SQ SCH (21:00)
[2019-11-15] MEDS: INSULIN ASPART 100 UNITS/ML 3 ML PEN SC SCH ×5 (00:05→20:40)
[2019-11-15 06:24] LABS: Basophils # (auto) 0.01 K/uL (0-0.2); Basophils % (auto) 0.2 %; Eosinophils % (auto) 4.7 %; Hematocrit (blood only) 44.7 % (37-47); Hemoglobin 14.9 g/dL (12.0-16.0); Immature Granulocytes # (auto) 0.01 K/uL (0.00-0.02); Immature Granulocytes % (auto) 0.2 %; Lymphocytes # (auto) 2.48 K/uL (1.2-3.4); Lymphocytes % (auto) 38.6 %; Mean Corpuscular Hemoglobin 29.7 pg (25-34); Mean Corpuscular Hgb Conc 33.3 g/dL (32-36); Mean Platelet Volume 11.4 fL (7.4-10.4); Monocytes # (auto) 0.42 K/uL (0.11-0.59); Monocytes % (auto) 6.5 %; Neutrophils % (auto) 49.8 %; Platelet Count 265 K/uL (130-400); RDW Standard Deviation 48.7 fL (36.4-46.3); Red Blood Count 5.02 M/uL (4.2-5.4); White Blood Count 6.42 K/uL (4.8-10.8)
[2019-11-15 06:54] LABS: Estimated Average Glucose 148 mg/dl; Hemoglobin A1C 6.8 % (4.5-5.6)
[2019-11-15 07:00] LABS: BUN Creatinine Ratio 7.3 (10-20); Calcium 8.7 mg/dl (8.5-10.1); Creatinine Clr Calc Pharmacy 42.1 ml/min; Est GFR (African American) 69.4; Est GFR (Non-African American) 59.9; Potassium 3.8 mmol/L (3.5-5.1)
[2019-11-15] MEDS: AMLODIPINE BESYLATE 5 MG TAB PO SCH (07:32)
[2019-11-15] MEDS: lisinopriL 20 MG TAB PO SCH ×2 (07:32→20:38)
[2019-11-15] MEDS: HEPARIN SOD 5,000 UNIT/0.5 ML VIAL SQ SCH ×2 (07:57→20:38)
--- NOTE | 2019-11-15 08:41 | Electrocardiogram Report ---
Test Reason : Blood Pressure : / mmHG Vent. Rate : 065 BPM Atrial Rate : 065 BPM P-R Int : 164 ms QRS Dur : 068 ms QT Int : 412 ms P-R-T Axes : 049 012 -04 degrees QTc Int : 428 ms Normal sinus rhythm Possible Old Inferior infarct Abnormal ECG When compared with ECG of 19-AUG-2019 12:50, Confirmed by Kvng Lipscomb ([id number]) on 11/15/2019 8:40:31 AM Referred By: Ani Confirmed By:Kvng Lipscomb
[2019-11-15] MEDS ORDERED: lisinopriL 20 MG TAB PO SCH (09:00)
[2019-11-15] MEDS ORDERED: ASPIRIN 300 MG SUPP PR SCH (09:00)
[2019-11-15] MEDS ORDERED: ASPIRIN 81 MG ECTAB PO SCH (09:00)
[2019-11-15] MEDS ORDERED: AMLODIPINE BESYLATE 5 MG TAB PO SCH (09:00)
--- NOTE | 2019-11-15 11:24 | Hospitalist Progress Note ---
Date of Service November 15, 2019 Assessment & Plan (1) Cerebrovascular accident: CTA of head/neck concerning for acute right COATING OPERATOR territory infarct. Discussed with pt's daughter who agrees with admission for additional monitoring and evaluation but overall does not want aggressive measures. Very difficult to check for neurological status Talk to the [facility] nursing staff. She was sent to hospital with deterioration in her walking and increasing generalized weakness but no mention of having any focal neurological deficit.she mentioned to have questionable right-sided weakness She takes only finger foods and she requires assistance with drinking any liquid. She walks with one assist and she cannot do anything by herself. Start aspirin 81 mg daily Appreciate neurology input and recommendation Consult PT/OT/Speech therapy Would like to be back to [facility] in a day or 2 (2) Hypokalemia: - Start maintenance IVF - will replete potassium with IVF and recheck in AM -Electrolytes are normalized (3) Type 2 diabetes mellitus: - Hold baseline Lantus while NPO - Insulin sliding scale for now - Accuchecks Q6 hrs (4) Dementia: Per daughter, pt appears to be at baseline mental status She is nonverbal and noncommunicative -Continue Seroquel (5) Hypertension: -Continue outpatient amlopdine and lisinopril with holds Extensive conversation with pt's daughter, Rosalba. She requests to be updated with any changes. Her cell # is [phone] and home # is [phone]. All of her questions were answered. She is in agreement with plan of care. She does state that the family is in agreement that pt is DNR/DNI. Talk to the [facility] nursing staff. She was sent to hospital with deterioration in her walking and increasing generalized weakness but no mention of having any focal neurological deficit.she mentioned to have questionable right-sided weakness She takes only finger foods and she requires assistance with drinking any liquid. She walks with one assist and she cannot do anything by herself. Like to be discharged in a day or 2 and back to [facility] facility. Admission and Anticipated Discharge Date Admission Date: November 14, 2019 Subjective 11/15/2019 The patient was seen and examined in medical telemetry unit She has profound dementia and is nonverbal, noncommunicative and mostly bedbound She moans most of the time but seems to be not in any acute distress Review of Systems Review of Systems: Unobtainable due to cognitive status Physical Exam 2 Physical Exam: Lying in bed and moaning all the time without any acute distress Constitutional: well developed and well nourished; no acute distress and not ill appearing Eyes: PERRL, conjunctivae normal, anicteric sclerae ENMT: external ear and nose normal, oropharynx normal Neck: trachea midline, no thyromegaly Respiratory: normal respiratory effort; no respiratory distress Auscultation: lungs clear to auscultation bilaterally Cardiovascular: Rate/Rhythm: regular rate and regular rhythm Heart Sounds: no murmur Gastrointestinal (Abdomen): Inspection/Auscultation: abdomen normal to inspection and normal bowel sounds; abdomen not distended Percussion/Palpation: abdomen soft; abdomen nontender Musculoskeletal: No acute arthritis in any joints Neurologic: Has profound dementia, nonverbal and noncommunicative. No facial asymmetry, grossly no focal neuro deficit. Lymphatic: no cervical or axillary lymphadenopathy Results & Data Results & Data ([facility]) Vital Signs (Past 12 Hours) Vital Signs Temp Pulse Pulse Resp BP BP Pulse Ox 11/15/19 09:39 78 11/15/19 07:18 36.5 C 68 18 167/106 H 97 11/15/19 04:07 36.7 C 74 19 140/76 92 11/15/19 00:21 65 11/14/19 23:46 36.6 C 73 22 164/103 H 96 Laboratory Results Short CBC 11/14/19 11/15/19 Range/Units 11:10 06:05 WBC 6.40 6.42 (4.8-10.8) K/uL Hgb 13.0 14.9 (12.0-16.0) g/dL Hct 40.3 44.7 (37-47) % Plt Count 250 265 (130-400) K/uL BMP 11/14/19 11/15/19 11:10 06:05 Sodium 142 141 Potassium 3.3 L 3.8 D Chloride 108 H 109 H Carbon Dioxide 29 27 BUN 12 6 L D Creatinine 0.97 0.86 Glucose 95 108 H Calcium 8.6 8.7 Cardiac Enzymes 11/14/19 Range/Units 11:10 Troponin I < 0.015 (0-0.045) ng/ml Liver Function 11/14/19 Range/Units 11:10 Total Bilirubin 0.4 (0.2-1) mg/dl AST 15 (15-37) U/L ALT 20 (12-78) U/L Alkaline Phosphatase 75 (45-117) U/L Albumin 3.2 L (3.4-5.0) gm/dl Urine 11/14/19 Range/Units 11:10 Urine Color Yellow Urine Appearance Clear (Clear) Urine pH 5.5 (4.5-7.5) Ur Specific [place] 1.016 (1.000-1.030) Urine Protein Negative (Negative) Urine Glucose (UA) Negative (Negative) Medications Administered Current Inpatient Medications Acetaminophen (Tylenol) 650 mg PO Q6H PRN PRN Reason: Pain Stop: 12/14/19 14:29 Amlodipine Besylate (Norvasc) 2.5 mg PO QAM [facility] Stop: 12/15/19 08:59 Last Admin: 11/15/19 07:32 Dose: Not Given Documented by: Aspirin (Ecotrin Ectab) 81 mg PO QAM [facility] Stop: 12/15/19 08:59 Aspirin (Aspirin) 300 mg TN DAILY [facility] Stop: 12/15/19 08:59 Last Admin: 11/15/19 07:57 Dose: 300 mg Documented by: Dextrose (Dextrose 50%) 25 - 50 ml IV UD PRN; Protocol PRN Reason: Hypoglycemia Protocol Stop: 12/14/19 15:31 Last Admin: 11/14/19 20:39 Dose: 25 ml Documented by: Glucagon (Glucagen) 1 mg SQ UD PRN; Protocol PRN Reason: Hypoglycemia Protocol Stop: 12/14/19 15:31 Glucose (Dex4 Glucose) 4 - 8 tabs PO UD PRN; Protocol PRN Reason: Hypoglycemia Protocol Stop: 12/14/19 15:31 Glucose (Glucose 40%) 15 - 30 gm PO UD PRN; Protocol PRN Reason: Hypoglycemia Protocol Stop: 12/14/19 15:31 Heparin Sodium (Porcine) (Heparin Sodium (Porcine)) 5,000 units SQ Q12 [facility] Stop: 12/14/19 20:59 Last Admin: 11/15/19 07:57 Dose: 5,000 units Documented by: Hydralazine HCl (Hydralazine Hcl) 5 mg IV Q6H PRN PRN Reason: Hypertension Stop: 12/14/19 20:14 Insulin Aspart (Novolog Flexpen) 0 units SC Q6 [facility] Stop: 12/14/19 17:59 Last Admin: 11/15/19 06:30 Dose: Not Given Documented by: Ioversol (Optiray 320 125ml) 120 ml IV ONCE PRN PRN Reason: Interaction Checking Stop: 11/18/19 11:49 Last Admin: 11/14/19 11:50 Dose: 120 ml Documented by: Lisinopril (Zestril) 20 mg PO BID [facility] Stop: 12/14/19 20:59 Last Admin: 11/15/19 07:32 Dose: Not Given Documented by: Miscellaneous (Carbohydrates For Hypoglycemia) 15 - 30 gm PO UD PRN PRN Reason: Hypoglycemia Protocol Stop: 12/14/19 15:31 Quetiapine Fumarate (Seroquel) 50 mg PO HS [facility] Stop: 12/14/19 20:59 Last Admin: 11/14/19 20:50 Dose: Not Given Documented by: (1) Cerebrovascular accident CVA mechanism: unspecified Qualified Code(s): I63.9 - Cerebral infarction, unspecified (2) Type 2 diabetes mellitus Diabetes mellitus snf insulin use: without snf use Diabetes mellitus complication status: without complication Qualified Code(s): E11.9 - Type 2 diabetes mellitus without complications (3) Dementia Dementia type: unspecified type Dementia behavioral disturbance: without behavioral disturbance Qualified Code(s): F03.90 - Unspecified dementia without behavioral disturbance (4) Hypertension Hypertension type: unspecified Qualified Code(s): I10 - Essential (primary) hypertension
[2019-11-15] MEDS ORDERED: Nursing to Pharmacy Communication ONE (11:40)
[2019-11-15] MEDS ORDERED: HydrALAZINE HCL 20 MG/ML VIAL IV PRN ×2 (11:45)
--- NOTE | 2019-11-15 16:19 | Communication Note ---
Date of Service: November 15, 2019 I saw Edwige today in neurologic consultation unfortunately find her almost impossible to examine neurologically she has advanced dementia moans and grunts in a rhythmic fashion does not seem to respond to any external stimuli with a purposeful motion and is virtually impossible to tell whether this woman had a visual field cut or not but she does not respond to threat in either field. The history suggests that she had a change in her mental status and had some weakness of her left arm and leg and perhaps some visual problems although I am not sure how 1 could tell and was brought here had a series of studies done including CT angiography which revealed a cut off of the right posterior cerebral artery, atheromatous changes in the basilar artery and the left posterior cerebral artery and a CAT scan showed quite a bit of ventriculomegaly cortical atrophy and some scattered white matter changes perhaps one in the right occipital lobe that looked old The question of a new stroke was raised neurology was consulted aspirin was started and overnight she is apparently gotten back to what everyone considers is her baseline At this point I see no harm in continuing aspirin. We found no other cause for her apparent change in gait and mental status and whether or not she had a completed infarction in the right occipital lobe is simply no think we are ever going to clearly establish and is frankly of academic more than practical interest She is a DO NOT RESUSCITATE DO NOT INTUBATE patient and upon review of her notes and plans it appears that she is going to be sent back to [facility] probably tomorrow and I would simply continue the aspirin Neurology really does not need to see her on a regular basis Bladimir Higgins MD
[2019-11-15] MEDS: QUETIAPINE FUMARATE 25 MG TABLET PO SCH (20:39)
[2019-11-16 06:35] LABS: Basophils # (auto) 0.01 K/uL (0-0.2); Basophils % (auto) 0.1 %; Eosinophils % (auto) 2.4 %; Hematocrit (blood only) 42.6 % (37-47); Hemoglobin 14.4 g/dL (12.0-16.0); Immature Granulocytes # (auto) 0.01 K/uL (0.00-0.02); Immature Granulocytes % (auto) 0.1 %; Lymphocytes # (auto) 2.66 K/uL (1.2-3.4); Lymphocytes % (auto) 32.2 %; Mean Corpuscular Hemoglobin 29.8 pg (25-34); Mean Corpuscular Hgb Conc 33.8 g/dL (32-36); Mean Corpuscular Volume 88.2 fL (80-100); Mean Platelet Volume 11.5 fL (7.4-10.4); Monocytes # (auto) 0.45 K/uL (0.11-0.59); Monocytes % (auto) 5.4 %; Neutrophils # (auto) 4.93 K/uL (1.4-6.5); Neutrophils % (auto) 59.8 %; Platelet Count 250 K/uL (130-400); RDW Coefficient of Variation 14.9 % (11.5-14.5); Red Blood Count 4.83 M/uL (4.2-5.4); White Blood Count 8.26 K/uL (4.8-10.8)
[2019-11-16 07:04] LABS: BUN Creatinine Ratio 11.3 (10-20); Calcium 8.7 mg/dl (8.5-10.1); Creatinine Clr Calc Pharmacy 35.5 ml/min; Est GFR (African American) 56.5; Est GFR (Non-African American) 48.7; Potassium 3.8 mmol/L (3.5-5.1)
[2019-11-16] MEDS: AMLODIPINE BESYLATE 5 MG TAB PO SCH (09:17)
[2019-11-16] MEDS: HEPARIN SOD 5,000 UNIT/0.5 ML VIAL SQ SCH ×2 (09:17→20:09)
[2019-11-16] MEDS: lisinopriL 20 MG TAB PO SCH ×2 (09:17→20:12)
[2019-11-16] MEDS: ASPIRIN 81 MG ECTAB PO SCH (09:17)
[2019-11-16] MEDS: INSULIN ASPART 100 UNITS/ML 3 ML PEN SC SCH ×4 (09:18→20:10)
--- NOTE | 2019-11-16 10:58 | Hospitalist Progress Note ---
Date of Service November 16, 2019 Assessment & Plan (1) Cerebrovascular accident: CTA of head/neck concerning for acute right DENTAL TECH territory infarct. Discussed with pt's daughter who agrees with admission for additional monitoring and evaluation but overall does not want aggressive measures. Very difficult to check for neurological status and very difficult to document if she has had a stroke Talk to the [facility] nursing staff. She was sent to hospital with deterioration in her walking and increasing generalized weakness but no mention of having any focal neurological deficit.she mentioned to have questionable right-sided weakness She takes only finger foods and she requires assistance with drinking any liquid. She walks with one assist and she cannot do anything by herself. Start aspirin 81 mg daily Appreciate neurology input and recommendation Consult PT/OT/Speech therapy Remains stable without any significant distress Will get PT and OT evaluation before sending her back to [facility] maybe today (2) Hypokalemia: - Start maintenance IVF - will replete potassium with IVF and recheck in AM -Electrolytes are normalized (3) Type 2 diabetes mellitus: - Hold baseline Lantus while NPO - Insulin sliding scale for now - Accuchecks Q6 hrs (4) Dementia: Per daughter, pt appears to be at baseline mental status She is nonverbal and noncommunicative -Continue Seroquel (5) Hypertension: -Continue outpatient amlopdine and lisinopril with holds Blood pressure remains stable Extensive conversation with pt's daughter, Rosalba. She requests to be updated with any changes. Her cell # is [phone] and home # is [phone]. All of her questions were answered. She is in agreement with plan of care. She does state that the family is in agreement that pt is DNR/DNI. Talk to the [facility] nursing staff. She was sent to hospital with deterioration in her walking and increasing generalized weakness but no mention of having any focal neurological deficit.she mentioned to have questionable right-sided weakness She takes only finger foods and she requires assistance with drinking any liquid. She walks with one assist and she cannot do anything by herself. Like to be discharged in a day or 2 and back to [facility] facility. Following PT evaluation if she is at her baseline she will be going back to [facility] this afternoon Will discuss this with the daughter. Admission and Anticipated Discharge Date Admission Date: November 14, 2019 Subjective 11/15/2019 The patient was seen and examined in medical telemetry unit She has profound dementia and is nonverbal, noncommunicative and mostly bedbound She moans most of the time but seems to be not in any acute distress 11/16/2019 The patient was seen and examined in medical telemetry unit She remains stable without any apparent distress She is nonverbal and moans all the time and is noncommunicative Review of Systems Review of Systems: Unobtainable due to cognitive status Physical Exam Physical Exam: Lying in bed and moaning all the time without any acute dis tress Constitutional: well developed and well nourished; no acute distress and not ill appearing Eyes: PERRL, conjunctivae normal, anicteric sclerae ENMT: external ear and nose normal, oropharynx normal Neck: trachea midline, no thyromegaly Respiratory: normal respiratory effort; no respiratory distress Auscultation: lungs clear to auscultation bilaterally Cardiovascular: Rate/Rhythm: regular rate and regular rhythm Heart Sounds: no murmur Gastrointestinal (Abdomen): Inspection/Auscultation: abdomen normal to inspection and normal bowel sounds; abdomen not distended Percussion/Palpation: abdomen soft; abdomen nontender Musculoskeletal: No noticeable acute arthritis in any joints Neurologic: Clinically no focal neuro deficit noted Lymphatic: no cervical or axillary lymphadenopathy Results & Data Results & Data ([facility]) Vital Signs (Past 12 Hours) Vital Signs Temp Pulse Pulse Resp BP Pulse Ox 11/16/19 07:20 74 11/16/19 07:09 36.4 C L 72 18 147/84 H 96 11/16/19 03:21 36.8 C 87 20 164/100 H 96 11/16/19 01:45 97 H 11/15/19 22:57 37.2 C 107 H 18 124/89 96 Laboratory Results Short CBC 11/16/19 Range/Units 06:22 WBC 8.26 (4.8-10.8) K/uL Hgb 14.4 (12.0-16.0) g/dL Hct 42.6 (37-47) % Plt Count 250 (130-400) K/uL BMP 11/16/19 06:22 Sodium 141 Potassium 3.8 Chloride 108 H Carbon Dioxide 27 BUN 11 D Creatinine 1.02 Glucose 140 H Calcium 8.7 Medications Administered Current Inpatient Medications Acetaminophen (Tylenol) 650 mg PO Q6H PRN PRN Reason: Pain Stop: 12/14/19 14:29 [facility]: 12/15/19 08:59 Last Admin: 11/16/19 09:17 Dose: 2.5 mg Documented by: Aspirin (Ecotrin Ectab) 81 mg PO QAM [facility] Stop: 12/15/19 08:59 Last Admin: 11/16/19 09:17 Dose: 81 mg Documented by: Dextrose (Dextrose 50%) 25 - 50 ml IV UD PRN; Protocol PRN Reason: Hypoglycemia Protocol Stop: 12/14/19 15:31 Last Admin: 11/14/19 20:39 Dose: 25 ml Documented by: Glucagon (Glucagen) 1 mg SQ UD PRN; Protocol PRN Reason: Hypoglycemia Protocol Stop: 12/14/19 15:31 Glucose (Dex4 Glucose) 4 - 8 tabs PO UD PRN; Protocol PRN Reason: Hypoglycemia Protocol Stop: 12/14/19 15:31 Glucose (Glucose 40%) 15 - 30 gm PO UD PRN; Protocol PRN Reason: Hypoglycemia Protocol Stop: 12/14/19 15:31 Heparin Sodium (Porcine) (Heparin Sodium (Porcine)) 5,000 units SQ Q12 [facility] Stop: 12/14/19 20:59 Last Admin: 11/16/19 09:17 Dose: 5,000 units Documented by: Hydralazine HCl (Hydralazine Hcl) 5 mg IV Q6H PRN PRN Reason: Hypertension Stop: 12/15/19 11:44 Last Admin: 11/15/19 19:37 Dose: 5 mg Documented by: Insulin Aspart (Novolog Flexpen) 0 units SC ACHS [facility] Stop: 12/14/19 17:59 Last Admin: 11/16/19 09:18 Dose: Not Given Documented by: Ioversol (Optiray 320 125ml) 120 ml IV ONCE PRN PRN Reason: Interaction Checking Stop: 11/18/19 11:49 Last Admin: 11/14/19 11:50 Dose: 120 ml Documented by: Lisinopril (Zestril) 20 mg PO BID [facility] Stop: 12/14/19 20:59 Last Admin: 11/16/19 09:17 Dose: 20 mg Documented by: Miscellaneous (Carbohydrates For Hypoglycemia) 15 - 30 gm PO UD PRN PRN Reason: Hypoglycemia Protocol Stop: 12/14/19 15:31 Quetiapine Fumarate (Seroquel) 50 mg PO HS [facility] Stop: 12/14/19 20:59 Last Admin: 11/15/19 20:39 Dose: 50 mg Documented by: (1) Cerebrovascular accident CVA mechanism: unspecified Qualified Code(s): I63.9 - Cerebral infarction, unspecified (2) Type 2 diabetes mellitus Diabetes mellitus fci insulin use: without continuous churn buttermaker use Diabetes mellitus complication status: without complication Qualified Code(s): E11.9 - Type 2 diabetes mellitus without complications (3) Dementia Dementia type: unspecified type Dementia behavioral disturbance: without be havioral disturbance Qualified Code(s): F03.90 - Unspecified dementia without behavioral disturbance (4) Hypertension Hypertension type: unspecified Qualified Code(s): I10 - Essential (primary) hypertension
[2019-11-16] MEDS: QUETIAPINE FUMARATE 25 MG TABLET PO SCH (20:12)
[2019-11-17 07:00] LABS: Basophils # (auto) 0.01 K/uL (0-0.2); Basophils % (auto) 0.2 %; Eosinophils # (auto) 0.37 K/uL (0-0.5); Eosinophils % (auto) 6.6 %; Hematocrit (blood only) 45.2 % (37-47); Hemoglobin 14.9 g/dL (12.0-16.0); Immature Granulocytes # (auto) 0.01 K/uL (0.00-0.02); Immature Granulocytes % (auto) 0.2 %; Lymphocytes # (auto) 1.91 K/uL (1.2-3.4); Lymphocytes % (auto) 34.2 %; Mean Corpuscular Hemoglobin 29.1 pg (25-34); Mean Corpuscular Volume 88.3 fL (80-100); Mean Platelet Volume 11.6 fL (7.4-10.4); Monocytes # (auto) 0.46 K/uL (0.11-0.59); Monocytes % (auto) 8.2 %; Neutrophils # (auto) 2.82 K/uL (1.4-6.5); Neutrophils % (auto) 50.6 %; Platelet Count 261 K/uL (130-400); RDW Coefficient of Variation 14.9 % (11.5-14.5); Red Blood Count 5.12 M/uL (4.2-5.4); White Blood Count 5.58 K/uL (4.8-10.8)
[2019-11-17 07:23] LABS: BUN Creatinine Ratio 13.3 (10-20); Calcium 9.5 mg/dl (8.5-10.1); Creatinine Clr Calc Pharmacy 37.6 ml/min; Est GFR (Non-African American) 51.8; Potassium 3.4 mmol/L (3.5-5.1)
[2019-11-17] MEDS: HEPARIN SOD 5,000 UNIT/0.5 ML VIAL SQ SCH (08:40)
[2019-11-17] MEDS: ASPIRIN 81 MG ECTAB PO SCH (08:40)
[2019-11-17] MEDS: lisinopriL 20 MG TAB PO SCH (08:40)
[2019-11-17] MEDS: AMLODIPINE BESYLATE 5 MG TAB PO SCH (08:40)
[2019-11-17] MEDS: INSULIN ASPART 100 UNITS/ML 3 ML PEN SC SCH ×2 (08:41→12:53)
[2019-11-17] MEDS ORDERED: POTASSIUM CHLORIDE 20 MEQ TABCR PO SCH (09:00)
--- NOTE | 2019-11-17 13:14 | Hospitalist Progress Note ---
Date of Service November 17, 2019 Assessment & Plan (1) Cerebrovascular accident: per Dr. Vazquez's notes: CTA of head/neck; 1. Focal abrupt cut off within the proximal right FEED PREPARATION OPERATOR. This is age indeterminate but concerning for an acute right FEED PREPARATION OPERATOR territory infarct. 2. Additional multifocal areas of stenosis within the [place] as described above. 3. Mild stenosis at the origin of the right internal carotid artery. The left internal carotid artery and common carotid arteries are patent. CT head: 1. No acute infarct. 2. Stable 17 mm left frontal lobe meningioma. 3. Progressive moderate ventriculomegaly. This could be due to atrophic changes given the patient's age. A normal pressure hydrocephalus could also have a similar appearance in the appropriate clinical setting. Neurologist Dr. Higgins consulted recommend aspirin 81 mg daily for possible R occipital lobe CVA (2) Hypokalemia: 3.4 potassium 40meq daily ordered encourage to have more K rich food repeat K level in 2-3 days monitor regularly (3) Type 2 diabetes mellitus: A1c 6.8 continue usual regimen (4) Dementia: per Dr. Vazquez's notes: Per daughter, pt appears to be at baseline mental status She is nonverbal and noncommunicative -Continue Seroquel (5) Hypertension: systolic BP in 140's-150s acceptable for a few days in the setting of possible CVA monitor closely and titrate medications accordingly ff up with PCP in 1 week Admission and Anticipated Discharge Date Admission Date: November 14, 2019 Subjective ff up for possible CVA seen resting in bed, sitting up alert, (+) eye contact with examiner not in distress non verbal which is baseline, does make moaning sound able to eat with assistance per RN no other issues Review of Systems Review of Systems: All systems reviewed & are unremarkable except as noted in HPI & below Physical Exam Physical Exam: General- alert, not in distress,breathing with no effort or accessory muscle use Head- atraumatic Eyes- PERRL, EOMI, anicteric ENT- oropharynx clear Neck- supple, no JVD, no adenopathy, no thyromegaly; carotids +2/2, no bruits appreciated Lungs- clear to auscultation bilaterally, no rales/wheezes Heart- normal rate, regular rhythm; no murmur, no gallop, no rub appreciated Abdomen- normal bowel sounds, nondistended, soft, nontender, no masses or hepatosplenomegaly Extremities- no pretibial edema, no calf tenderness; peripheral pulses intact Neuro- alert,moves all extremities equally, no other gross focal neurologic deficits difficult to perform full Neuro exam due to patient's cognitive status Skin- warm & dry Results & Data Results & Data ([facility] Vital Signs (Past 12 Hours) Vital Signs Temp Pulse Pulse Resp BP BP Pulse Ox 11/17/19 11:39 36.5 C 83 18 154/113 H 156/100 H 99 11/17/19 07:30 66 11/17/19 07:20 36.4 C L 78 20 147/93 H 97 11/17/19 02:59 36.6 C 73 19 144/92 H 94 11/17/19 02:15 87 Laboratory Results Laboratory Results - last 24 hr 11/16/19 11/16/19 11/17/19 16:23 19:54 00:11 WBC RBC Hgb Hct MCV MCH MCHC RDW Std Deviation RDW Coeff of Saira Plt Count MPV Immature Gran % (Auto) Neut % (Auto) Lymph % (Auto) [place] % (Auto) Eos % (Auto) Baso % (Auto) Immature Gran # (Auto) Neut # (Auto) Lymph # (Auto) [place] # (Auto) Eos # (Auto) Baso # (Auto) Sodium Potassium Chloride Carbon Dioxide Anion Gap BUN Creatinine Est Cr Clr Drug Dosing Est GFR ( Amer) Est GFR (Non-Af Amer) BUN/Creatinine Ratio Glucose POC Glucose 75 136 H 109 H Calcium 11/17/19 11/17/19 11/17/19 06:37 06:37 07:30 WBC 5.58 RBC 5.12 Hgb 14.9 Hct 45.2 MCV 88.3 MCH 29.1 MCHC 33.0 RDW Std Deviation 48.0 H RDW Coeff of Saira 14.9 H Plt Count 261 MPV 11.6 H Immature Gran % (Auto) 0.2 Neut % (Auto) 50.6 Lymph % (Auto) 34.2 [place] % (Auto) 8.2 Eos % (Auto) 6.6 Baso % (Auto) 0.2 Immature Gran # (Auto) 0.01 Neut # (Auto) 2.82 Lymph # (Auto) 1.91 [place] # (Auto) 0.46 Eos # (Auto) 0.37 Baso # (Auto) 0.01 Sodium 139 Potassium 3.4 L Chloride 106 Carbon Dioxide 27 Anion Gap 6.0 BUN 13 Creatinine 0.97 Est Cr Clr Drug Dosing 37.6 Est GFR ( Amer) 60.0 Est GFR (Non-Af Amer) 51.8 BUN/Creatinine Ratio 13.3 Glucose 121 H POC Glucose 122 H Calcium 9.5 11/17/19 11:45 WBC RBC Hgb Hct MCV MCH MCHC RDW Std Deviation RDW Coeff of Saira Plt Count MPV Immature Gran % (Auto) Neut % (Auto) Lymph % (Auto) [place] % (Auto) Eos % (Auto) Baso % (Auto) Immature Gran # (Auto) Neut # (Auto) Lymph # (Auto) [place] # (Auto) Eos # (Auto) Baso # (Auto) Sodium Potassium Chloride Carbon Dioxide Anion Gap BUN Creatinine Est Cr Clr Drug Dosing Est GFR ( Amer) Est GFR (Non-Af Amer) BUN/Creatinine Ratio Glucose POC Glucose 90 Calcium (1) Type 2 diabetes mellitus Diabetes mellitus complication status: without complication Diabetes mellitus [facility] insulin use: without uniform room attendant use Qualified Code(s): E11.9 - Type 2 diabetes mellitus without complications (2) Dementia Dementia behavioral disturbance: without behavioral disturbance Dementia type: unspecified type Qualified Code(s): F03.90 - Unspecified dementia without behavioral disturbance (3) Cerebrovascular accident CVA mechanism: unspecified Qualified Code(s): I63.9 - Cerebral infarction, unspecified (4) Hypertension Hypertension type: unspecified Qualified Code(s): I10 - Essential (primary) hypertension
--- NOTE | 2019-11-17 13:36 | Discharge Summary ---
Date of Service November 17, 2019 Admission HPI Per Admitting Provider This is an 89 y/o female who is non-verbal and has a history of dementia, meningioma, insulin-requiring diabetes, and hypertension who presents from [facility] with neurologic changes if an unclear duration but potentially since yesterday. Pt unable to provide any history so history gathered from daughter and ED physician. At some point yesterday, staff at [facility] noticed pt favoring her left side and an abnormal gaze. This morning they noticed pt having increased difficulty with ambulation and a change in her gait so sent to ED for further work-up. Per daughter, pt had done well with PT/OT/speech therapy since she was last admitted her in August. Was able to walk with one person assist (struggles with using a walker) and had started feeding herself finger foods. Pt has been non-verbal for past two years but does groan or hum frequently. Seems to recognize family but does not maintain eye contact at baseline. Admission Exam Per Admitting Provider Constitutional: WD/WN, vitals as above no acute distress Eyes: + anicteric sclerae and PERRL; no conjunctival abnormality Unable to cooperate with EOMs - did intermittently track my movement around the room ENMT: Moist mucus membranes Neck: normal visual inspection and trachea midline Respiratory: no respiratory distress, no retractions and does not use accessory muscles Auscultation: lungs clear to auscultation bilaterally (but limited inspiratory effort) Cardiovascular: Rate/Rhythm: regular rate and regular rhythm Vessels: dorsalis pedis pulses present Extremities: + edema (1+ bilateral LE edema) Gastrointestinal (Abdomen): Inspection/Auscultation: normal bowel sounds; abdomen not distended Percussion/Palpation: abdomen soft; abdomen nontender Musculoskeletal: Head/Neck/Chest: normocephalic, head atraumatic and neck supple Extremities: no cyanosis and no clubbing Skin: no rashes, warm and dry no jaundice Neurologic: moves all extremities (but limited ability to cooperate with full exam) Speech / Cognition: + abnormal speech (non-verbal - groaning during exam) No facial droop noted Principal Diagnosis POSSIBLE RIGHT OCCIPITAL ACUTE CVA Discharge Exam General- alert, not in distress,breathing with no effort or accessory muscle use Head- atraumatic Eyes- EOMI, anicteric ENT- oropharynx clear Neck- no JVD Lungs- clear to auscultation bilaterally, no rales/wheezes Heart- normal rate, regular rhythm; no murmurs Abdomen- normal bowel sounds, nondistended, soft, nontender Extremities- no pretibial edema, no calf tenderness Neuro- alert,moves all extremities equally, no other gross focal neurologic deficits difficult to perform full Neuro exam due to patient's cognitive status Skin- warm & dry Discharge Data Allergies Allergy/AdvReac Type Severity Reaction Status Date / Time No Known Allergies Allergy Unverified 11/14/19 11:36 Consultations 11/14/19 13:24 ED Decision to Admit Stat 11/14/19 14:23 Consult Neurology Routine 11/14/19 15:32 Consult Case Management - Discharge Planning Routine Consult Case Management - Discharge Planning Routine Ordered Studies 11/14/19 10:34 CT angio head w con Stat CT angio neck with con Stat FINDINGS: Moderate ventriculomegaly is again noted as seen on the same day head CT. Mild focal narrowing within the mid basilar artery. There is abrupt cut off within the proximal right [employer]. Multifocal high-grade stenosis within the left [employer]. Moderate narrowing within the supraclinoid portion of the right ICA. The left intracranial ICA appears patent. Moderate multifocal narrowing within the right OBI. The left OBI appears patent. Mild focal narrowing within the proximal left MCA. The right MCA is patent. Hypoplastic left vertebral artery comparison to the right. The aortic arch and proximal great vessels are widely patent. Mild focal stenosis at the origin of the right ICA of approximately 30% due to the atherosclerotic plaque. The bilateral common carotid, left internal carotid, vertebral arteries appear patent. IMPRESSION: 1. Focal abrupt cut off within the proximal right [employer]. This is age indeterminate but concerning for an acute right [employer] territory infarct. 2. Additional multifocal areas of stenosis within the ute of Schreiber as described above. 3. Mild stenosis at the origin of the right internal carotid artery. The left internal carotid artery and common carotid arteries are patent. CT head/brain wo con Stat Findings: The paranasal sinuses and mastoid air cells are clear. The calvarium and skull base are intact. No change in the 1.7 cm calcified extra-axial lesion within the left frontal lobe. This favors a meningioma. No hematoma, midline shift, or acute infarct. Progressive moderate ventriculomegaly. Mild microvascular ischemic changes are again noted. Impression: 1. No acute infarct. 2. Stable 17 mm left frontal lobe meningioma. 3. Progressive moderate ventriculomegaly. This could be due to atrophic changes given the patient's age. A normal pressure hydrocephalus could also have a similar appearance in the appropriate clinical setting. Hospital Course (1) Cerebrovascular accident: per Dr. Vazquez's notes (previous attending): patient presents with change in gait- favoring left side and abnormal gaze CTA of head/neck; 1. Focal abrupt cut off within the proximal right [employer]. This is age inde terminate but concerning for an acute right [employer] territory infarct. 2. Additional multifocal areas of stenosis within the ute of Schreiber as described above. 3. Mild stenosis at the origin of the right internal carotid artery. The left internal carotid artery and common carotid arteries are patent. CT head: 1. No acute infarct. 2. Stable 17 mm left frontal lobe meningioma. 3. Progressive moderate ventriculomegaly. This could be due to atrophic changes given the patient's age. A normal pressure hydrocephalus could also have a similar appearance in the appropriate clinical setting. Neurologist Dr. Higgins consulted recommend aspirin 81 mg daily for possible R occipital lobe CVA continue strict risk factor control for stroke continue PT/OT (2) Hypokalemia: 3.4 potassium 40meq daily ordered encourage to have more K rich food repeat K level in 2-3 days monitor regularly (3) Type 2 diabetes mellitus: A1c 6.8 continue usual regimen (4) Dementia: per Dr. Vazquez's notes: Per daughter, pt appears to be at baseline mental status She is nonverbal and noncommunicative -Continue Seroquel (5) Hypertension: systolic BP in 140's-150s acceptable for a few days in the setting of possible CVA monitor closely and titrate medications accordingly ff up with PCP in 1 week Total Time Total Time Spent Total Time Spent (In Minutes): 60 minutes Discharge Plan Discharge Items Patient Disposition: Personal Halfway Reason For Visit: CVA Discharge Diagnosis: Possible stroke-no residual symptoms, dementia-nonverbal and noncommunicative, hypertension, type 2 diabetes Condition on Discharge: Fair Activity: As commented below Activity Comment: Requires help with ADLS Non-emergency contact: Primary Care Provider Call non-emergency contact if: you have any medication questions and your symptoms worsen Follow-up/Referrals: Ani, [Primary Care Provider] - Diet: Heart Healthy and Finger Foods Diet Comment: Needs assistance in taking fluids Addtl Attending Provider Instructions: Please take precaution to avoid falls. New medications are aspirin 81 mg daily and potassium 40meq daily. Always take ASA with a full stomach. Repeat K level in 2-3 days. Follow up with PCP in 1 week. Speech Therapist recommendation: Finger Food diet Aspiration Precautions, patient will need assistance to eat Alternate solids and liquids Supervise meals Fully alert and upright Single bites/ Small sips/ Slow rate NO straws Risk Factors for Stroke: You can reduce your chances of stroke by working with your medical provider to adopt a healthy lifestyle. Some specific ways to lower your chance of stroke are: If you are a smoker, now is the time to stop smoking cigarettes If you are diabetic, improve the control of your blood sugars Avoid excessive amounts of alcohol Control high blood pressure Lose weight if you are overweight Be sure to lead an active lifestyle Eat a healthy diet low in salt, cholesterol and fat You should know about other risk factors for stroke that you are unable to control. These include: Age 55 years or older Male gender Certain racial groups: , or / Family History of Stroke, Mini stroke or Heart Attack Sickle Cell Disease Follow Up: It is important for you to keep your follow up appointments with your medical provider. Who to Call and When: Medical Emergencies: Call 911 immediately if you experience any of the follow ing warning signs and symptoms of Stroke: Sudden numbness or weakness of the face, arm or leg, especially on one side of the body Sudden confusion, trouble speaking or understanding Sudden trouble seeing in one or both eyes Sudden trouble walking, dizziness, loss of balance or coordination Sudden severe headache with no cause Do not delay calling 911 if you experience any warning signs or symptoms of a stroke. Delay in seeking medical attention may affect what treatments can be given to you. Pending Studies at Discharge: Yes Studies:: repeat potassium level in 2-3 days Stand-Alone Forms: [employer] Smoking Cessation Skilled Items Patient informed of condition?: No DNR: Yes Discharge Level of Care: Other Communicable Disease: No Discharge Prognosis: Stable Lines: None Urinary Catheter: Yes Medications and DC Order Prescriptions: New aspirin 81 mg Tablet,Delayed Release (Dr/Ec) 81 mg PO QAM 30 Days Qty: 30 RF: 0 potassium chloride [Klor-Con 10] 10 mEq tablet extended release 40 meq PO DAILY Qty: 28 RF: 0 Continued Lantus Solostar U-100 Insulin 100 unit/mL (3 mL) insulin pen 7 units SQ BID RF: 0 lisinopril 20 mg Tablet 20 mg PO BID RF: 0 furosemide 20 mg Tablet 20 mg PO BID RF: 0 quetiapine 50 mg Tablet 50 mg PO HS RF: 0 acetaminophen 325 mg Tablet 650 mg PO Q6H PRN (Reason: Pain) RF: 0 Ensure Liquid 1 ea PO TID PRN (Reason: Other) RF: 0 amlodipine 2.5 mg Tablet 5 mg PO QAM Qty: 0 RF: 0 Discontinued tramadol 50 mg Tablet 50 mg PO Q6H PRN (Reason: Pain) RF: 0 Discharge Orders: Discharge Order (Routine); Ordered 11/17/19 Ordered By: Derian Aguirre Admission Data Admit Date/Time: 11/14/19 14:23 Attending Provider: Derian Aguirre Admit Provider: Nadja Vazquez Primary Care Provider: Ani, Kimberly Providers: Bladimir Higgins ; Nadja Vazquez
== END 2019-11-17 17:05 | disposition home or self-care (01) | DRG 66 ==
LOC: ED 10:25 → SUATTDRO 14:23 → 2N 14:23